=== PATIENT | female | born 1950 ===

== ENCOUNTER 2017-11-17 09:33 | Day surgery (SDC) | payer OTHER ==
[2017-11-17] MEDS ORDERED: Lactated Ringer's 500 ML IV ONE (09:55)
[2017-11-17 10:03] VITALS: BMI 31.4
[2017-11-17] MEDS ORDERED: Midazolam 2 MG/2 ML VIAL ONE (11:25)
[2017-11-17] MEDS ORDERED: Propofol 10 mg/ml Inj (20 ML) ONE (11:26)
[2017-11-17 11:56] VITALS: BP 125/76; PULSE 77; RESP 3; TEMP 96.8; O2SAT 98
== END 2017-11-17 11:57 | disposition home or self-care (01) ==
LOC: H.ENDO 09:33
PROVIDERS: ATTEND Internal Medicine Gastroenterology
DX: K30 Functional dyspepsia (principal); K21.9 Gastro-esophageal reflux disease without esophagitis; M19.90 Unspecified osteoarthritis, unspecified site; E78.5 Hyperlipidemia, unspecified; I10 Essential (primary) hypertension; F41.9 Anxiety disorder, unspecified; K29.50 Unspecified chronic gastritis without bleeding; G43.909 Migraine, unspecified, not intractable, without status migrainosus; K31.89 Other diseases of stomach and duodenum
CPT/HCPCS: 43239; 88305; J2250; J2704; J7120

== ENCOUNTER 2017-12-01 09:39 | Day surgery (SDC) | payer OTHER ==
[2017-12-01] MEDS ORDERED: Lactated Ringer's 500 ML IV ONE (10:19)
[2017-12-01] MEDS ORDERED: Propofol 10 mg/ml Inj (20 ML) ONE (11:11)
[2017-12-01 11:48] VITALS: TEMP 97; O2SAT 98
[2017-12-01 12:04] VITALS: BP 131/69; PULSE 88; RESP 17
== END 2017-12-01 13:36 | disposition home or self-care (01) ==
LOC: H.ENDO 09:39
PROVIDERS: ATTEND Internal Medicine Gastroenterology
DX: Z12.11 Encounter for screening for malignant neoplasm of colon (principal); I10 Essential (primary) hypertension; E78.5 Hyperlipidemia, unspecified; M19.90 Unspecified osteoarthritis, unspecified site; G43.909 Migraine, unspecified, not intractable, without status migrainosus; K64.0 First degree hemorrhoids; K57.30 Diverticulosis of large intestine without perforation or abscess without bleeding
CPT/HCPCS: G0121; J2001; J2704; J7120